=== PATIENT | female | born 1950 | race Caucasian/White ===

== ENCOUNTER → 2016-05-11 | Outpatient (REF) | payer MEDICARE, OTHER ==
[~2016-05-11] MED LIST: AMBI10TA PO; ASPI81TA45 OR; BIOT10005 PO; CEFT500T3 PO; CIPR500T3 PO; DRIS50002 PO; ESCI10TA2 PO; FISH100049 PO; FLOM5CAP PO; GLUC500T53 PO; HYDR-3719 PO; MULT1TAB8 PO; OYST500T OR; PERCOCET PO; VICO5TAB PO; VIT D 2000 PO; VITS; multivitamins PO; phentermine PO
== END ==
LOC: M SMT 12:59
PROVIDERS: ATTEND Urology
DX: N20.0 Calculus of kidney (principal)
CPT/HCPCS: 81001; 87086; G0463

== ENCOUNTER → 2016-05-23 | Outpatient (REF) | payer MEDICARE, OTHER ==
[2016-05-23 21:19] LABS: CALCIUM LEVEL 9.5 MG/DL (8.8-10.2); CARBON DIOXIDE LEVEL 31 MEQ/L (21-32); CHLORIDE LEVEL 105 MEQ/L (98-107); GLOMERULAR FILTRATION RATE > 60.0 (>45); MAGNESIUM LEVEL 2.2 MG/DL (1.8-2.4); PHOSPHORUS LEVEL 3.4 MG/DL (2.5-4.9); POTASSIUM SERUM 4.2 MEQ/L (3.5-5.1); SODIUM LEVEL 143 MEQ/L (136-145); URIC ACID 4.8 MG/DL (2.6-6.0)
== END ==
LOC: M LAB REF 08:51
PROVIDERS: ATTEND Urology
DX: N20.0 Calculus of kidney (principal)

== ENCOUNTER → 2016-07-19 | Outpatient (CLI) | payer MEDICARE, BC ==
--- NOTE | 2016-07-19 09:23 | REPMRS ---
Patient History The patient states she has not had a clinical breast exam in over a year. Patient is postmenopausal, has history of cancer in the right breast at age 51, had previous chest radiation therapy at age 51, and had previous chemotherapy at age 51. No known family history of cancer. Malignant excisional biopsy of the right breast, 2001. Radiation therapy of the right breast, 2001. Took tamoxifen for 5 years. Digital Woman Screen Mammo: July 19, 2016 - Exam #: [id number] Bilateral CC and MLO view(s) were taken. Technologist: Pinky Koroma, Technologist Prior study comparison: June 15, 2015, digital woman screen mammo performed at [facility] [place]. May 18, 2014, digital woman screen mammo performed at [facility]. FINDINGS: There are scattered fibroglandular densities. There is a fairly symmetric fibroglandular pattern in both breasts. There has been no interval development of masses, areas of architectural distortion or clusters of microcalcifications typical of malignancy. ASSESSMENT: BI-RADS/ACR category 2 mammogram. Benign finding(s). Recommendation Routine screening mammogram of both breasts in 1 year (for women over age 40). This mammogram was interpreted with the aid of an FDA-approved computer-aided dectection system. Electronically Signed By: Rodrick Gerenwood MD 07/19/16 0955
== END ==
LOC: M WHC 08:00
PROVIDERS: ATTEND Family Medicine
DX: Z12.31 Encounter for screening mammogram for malignant neoplasm of breast (principal); Z78.0 Asymptomatic menopausal state; Z85.3 Personal history of malignant neoplasm of breast; Z92.3 Personal history of irradiation; Z92.21 Personal history of antineoplastic chemotherapy

== ENCOUNTER → 2016-09-26 | Outpatient (CLI) | payer MEDICARE, BC, OTHER ==
--- NOTE | 2016-09-26 11:42 | REP ---
HIDA SCAN WITH GALLBLADDER EJECTION FRACTION: Following the intravenous administration of 6.1 mCi technetium 99m mebrofenin, multiple images of the right upper quadrant are performed every 5 minutes for a period of 1 hour. Gallbladder is visualized at 10 minutes postinjection. 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 At the 1-hour malou, 8 ounces of Ensure Enlive was ingested and further imaging performed for 1 hour. Lefkccy-hd-owzru transit is seen at about 5 minutes after ingestion of the Ensure. Gallbladder activity is measured, and the gallbladder ejection fraction is calculated to be 84%, which is normal. IMPRESSION: Normal gallbladder ejection fraction. 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 No scintigraphic evidence of cholecystitis. Signed by Rodrick Greenwood MD 09/28/2016 06:55 P
== END ==
LOC: M RAD 07:43
PROVIDERS: ATTEND Family Medicine
DX: R10.31 Right lower quadrant pain (principal)
CPT/HCPCS: 78227; A9537; J2805

== ENCOUNTER → 2016-11-30 | Outpatient (REF) | payer MEDICARE, OTHER ==
[~2016-11-30] MED LIST changes: -BIOT10005 PO; +BIOT10008 PO
== END ==
LOC: M LAB REF 15:40
PROVIDERS: ATTEND Nurse Practitioner Family
DX: L08.9 Local infection of the skin and subcutaneous tissue, unspecified (principal)

== ENCOUNTER → 2018-02-08 | Outpatient (CLI) | payer MEDICARE, OTHER ==
[2018-02-08 19:32] LABS: ANION GAP 8 MEQ/L (8-16); BLOOD UREA NITROGEN 17 MG/DL (7-18); CALCIUM LEVEL 9.3 MG/DL (8.8-10.2); CARBON DIOXIDE LEVEL 30 MEQ/L (21-32); CHLORIDE LEVEL 106 MEQ/L (98-107); CREATININE FOR GFR 0.85 MG/DL (0.55-1.30); GLOMERULAR FILTRATION RATE > 60.0 (>45); GLUCOSE, FASTING 189 MG/DL (70-100); PHOSPHORUS LEVEL 3.4 MG/DL (2.5-4.9); POTASSIUM SERUM 4.3 MEQ/L (3.5-5.1); SODIUM LEVEL 144 MEQ/L (136-145)
== END ==
LOC: M ADAMS 15:18
DX: I71.01 Dissection of thoracic aorta (principal)
CPT/HCPCS: 80069

== ENCOUNTER → 2018-02-15 | Outpatient (CLI) | payer MEDICARE, BC, OTHER ==
[~2018-02-15] MED LIST changes: -AMBI10TA PO; -ASPI81TA45 OR; -BIOT10008 PO; -CEFT500T3 PO; -CIPR500T3 PO; -DRIS50002 PO; -ESCI10TA2 PO; -FISH100049 PO; -FLOM5CAP PO; -GLUC500T53 PO; -HYDR-3719 PO; +ISOVUE-370 76% 100ML VIAL (Q9967) As Ordered; -MULT1TAB8 PO; -OYST500T OR; -PERCOCET PO; -VICO5TAB PO; -VIT D 2000 PO; -VITS; -multivitamins PO; -phentermine PO
== END ==
LOC: M RAD 13:16
DX: I71.01 Dissection of thoracic aorta (principal)
CPT/HCPCS: Q9967

== ENCOUNTER 2018-02-25 13:24 | Day surgery (SDC) | payer MEDICARE, BC, OTHER ==
[~2018-02-25 13:24] MED LIST changes: +AMPICILLIN SOD/SULBACTAM SOD 3 GM in D5W MINI-BAG PLUS 100 ML IV; -ISOVUE-370 76% 100ML VIAL (Q9967) As Ordered; +dexameTHASONE 4 MG/ML 1ML VIAL (J1100) IV
[2018-02-25 13:54] LABS: BEDSIDE GLUCOSE 112 MG/DL (80-115)
[2018-02-25] MEDS: LR 1,000 ML IV (13:56)
[2018-02-25] MEDS: LIDOCAINE VISCOUS 2% SOLN 15ML UDC As Ordered (16:34)
[2018-02-25] MEDS ORDERED: LIDOCAINE 2% INJ 100 MG/5 ML SDV (FOR ANES.) As Ordered (16:58)
[2018-02-25] MEDS ORDERED: PROPOFOL 200 MG/20 ML VIAL As Ordered ×2 (16:58)
[2018-02-25] MEDS ORDERED: fentaNYL 100 MCG/2 ML INJECTION (J3010) As Ordered (16:58)
[2018-02-25] MEDS ORDERED: ONDANSETRON 4MG/2ML VIAL (J2405) As Ordered (16:58)
[2018-02-25] MEDS ORDERED: MIDAZOLAM INJ 2 MG/2 ML VIAL (J2250) As Ordered (16:59)
[2018-02-25] MEDS: CETACAINE SPRAY 5GM As Ordered (17:17)
== END 2018-02-25 18:50 | disposition home or self-care (01) ==
LOC: M SDC 13:24
DX: I71.01 Dissection of thoracic aorta (principal); Q23.1 Congenital insufficiency of aortic valve; I34.1 Nonrheumatic mitral (valve) prolapse; I48.91 Unspecified atrial fibrillation; E78.00 Pure hypercholesterolemia, unspecified; E11.9 Type 2 diabetes mellitus without complications; K57.32 Diverticulitis of large intestine without perforation or abscess without bleeding; F32.9 Major depressive disorder, single episode, unspecified; G47.33 Obstructive sleep apnea (adult) (pediatric); Z79.899 Other long term (current) drug therapy; Z79.82 Long term (current) use of aspirin; Z85.3 Personal history of malignant neoplasm of breast; Z92.21 Personal history of antineoplastic chemotherapy; Z92.3 Personal history of irradiation; Z90.710 Acquired absence of both cervix and uterus; Z95.828 Presence of other vascular implants and grafts
CPT/HCPCS: 76376

== ENCOUNTER → 2018-09-13 | Outpatient (CLI) | payer MEDICARE, BC ==
[~2018-09-13] MED LIST changes: +AMBI10TA PO; -AMPICILLIN SOD/SULBACTAM SOD 3 GM in D5W MINI-BAG PLUS 100 ML IV; +APAP325T4 PO; +ASPI1CHW2 PO; +ASPI81TA45 OR; +BIOT10008 PO; +CEFT500T3 PO; +CIPR500T3 PO; +CRES20TA2 PO; +DRIS50003 PO; +DULO1CAP3 PO; +ESCI10TA2 PO; +FISH100049 PO; +FLOM0.4C39 PO; +GLUC500T53 PO; +HYDR-3719 PO; +INVO100T PO; +MULT1TAB8 PO; +OYST500T OR; +PERCOCET PO; +PREG100CA PO; +VASC1CAP2 PO; +VICO10TA11 PO; +VICO5TAB PO; +VIT D 2000 PO; +VITS; -dexameTHASONE 4 MG/ML 1ML VIAL (J1100) IV; +multivitamins PO; +phentermine PO
--- NOTE | 2018-09-13 13:59 | REPMRS ---
Patient History The patient states she had a clinical breast exam in 07/2018. No known family history of cancer. Malignant excisional biopsy of the right breast, 2001. Radiation therapy of the right breast, 2001. Took tamoxifen for 5 years. Digital Woman Screen Mammo: September 13, 2018 - Exam #: [id number] Bilateral CC and MLO view(s) were taken. Technologist: Pinky Koroma, Technologist Prior study comparison: July 19, 2016, digital woman screen mammo performed at [facility]. June 15, 2015, digital woman screen mammo performed at [facility]. May 18, 2014, digital woman screen mammo performed at [facility]. FINDINGS: There are scattered fibroglandular densities. There is a stable area of post-treatment scarring in the upper outer quadrant on the right. There has been no change in the appearance of the mammogram from the prior studies. There is a mild amount of scattered fibroglandular density which is fairly symmetric. There is no interval development of dominant mass, architectural distortion, or clustered microcalcification suggestive of malignancy. 3-D tomosynthesis shows no additional findings. Assessment: BI-RADS/ACR category 2 mammogram. Benign Findings. Recommendation Routine screening mammogram of both breasts in 1 year (for women over age 40). This mammogram was interpreted with the aid of an FDA-approved computer-aided dectection system. Electronically Signed By: Sal Connors MD 09/13/18 1089
== END ==
LOC: M WHC 07:56
PROVIDERS: ATTEND Obstetrics & Gynecology
DX: Z12.31 Encounter for screening mammogram for malignant neoplasm of breast (principal); Z85.3 Personal history of malignant neoplasm of breast; Z79.810 Long term (current) use of selective estrogen receptor modulators (SERMs)

== ENCOUNTER → 2019-11-10 | Outpatient (CLI) | payer MEDICARE, BC ==
[~2019-11-10] MED LIST changes: -DULO1CAP3 PO; +DULO1CAP6 PO
--- NOTE | 2019-11-10 16:01 | REPMRS ---
Patient History The patient states she had a clinical breast exam in September 2019. No known family history of cancer. Malignant excisional biopsy of the right breast, 2001. Radiation therapy of the right breast, 2001. Took tamoxifen for 5 years. 3D TOMOSYNTHESIS WAS PERFORMED. PAULINA Champagne. Digital Woman Screen Mammo: November 10, 2019 - Exam #: [id number] Bilateral CC and MLO view(s) were taken. Technologist: Jody Haro, Technologist Prior study comparison: September 13, 2018, bilateral digital woman screen mammo performed at [facility]. July 19, 2016, digital woman screen mammo performed at [facility]. FINDINGS: There are scattered fibroglandular densities. There is a fairly symmetric fibroglandular pattern in both breasts. There has been no interval development of masses, areas of architectural distortion or clusters of microcalcifications typical of malignancy. There are stable post surgical changes in the right upper outer quadrant. No significant changes when compared with prior studies. Assessment: BI-RADS/ACR category 2 mammogram. Benign Findings. Recommendation Routine screening mammogram of both breasts in 1 year (for women over age 40). This mammogram was interpreted with the aid of an FDA-approved computer-aided dectection system. Electronically Signed By: Rodrick Greenwood MD 11/10/19 1600
== END ==
LOC: M WHC 14:25
PROVIDERS: ATTEND Obstetrics & Gynecology
DX: Z12.31 Encounter for screening mammogram for malignant neoplasm of breast (principal); Z85.3 Personal history of malignant neoplasm of breast; Z92.3 Personal history of irradiation

== ENCOUNTER → 2020-02-17 | Outpatient (CLI) | payer MEDICARE, BC, OTHER ==
[~2020-02-17] MED LIST changes: +GASTROGRAFIN SOLUTION 30ML (Q9963) As Ordered ONE; +ISOVUE-370 76% 100ML VIAL As Ordered ONE
--- NOTE | 2020-02-17 11:43 | REP ---
INDICATION: RLQ PAIN. COMPARISON: 01/28/2016, 12/31/2009. TECHNIQUE: 100 cc Isovue 370. FINDINGS: The lung bases are clear and unchanged. The liver, gallbladder, spleen, pancreas, and adrenal glands are within normal limits and essentially unchanged. There is a left renal calculus status quo. The abdominal aorta and para-aortic regions are within normal limits. There is no free fluid or free air. The bowel loops and the mesenteries are within normal limits. There is no abnormal pericecal fatty infiltration or fluid. There is no intra-abdominal mass or adenopathy. Bone window technique throughout the examination shows no significant change. There is spinal degenerative changes status quo. IMPRESSION: There is no evidence of acute intra-abdominal or intrapelvic disease. There has been no significant change compared to the prior exams. <Electronically signed by Dalton Johnson > 02/17/20 [id number]
== END ==
LOC: M RAD 08:50
PROVIDERS: ATTEND Family Medicine
DX: R10.9 Unspecified abdominal pain (principal)
CPT/HCPCS: 74177; Q9963; Q9967

== ENCOUNTER → 2020-12-06 | Outpatient (CLI) | payer MEDICARE, BC ==
[~2020-12-06] MED LIST changes: +ATOR40TA75 PO; +ESCI10TA16 PO; -ESCI10TA2 PO; +GABA600T4 PO; -GASTROGRAFIN SOLUTION 30ML (Q9963) As Ordered ONE; -ISOVUE-370 76% 100ML VIAL As Ordered ONE; +JARD1TAB PO; +LOSA50TA28 PO; +NAPR220C14 PO
== END ==
LOC: M WHC 08:27
PROVIDERS: ATTEND Obstetrics & Gynecology
DX: Z12.31 Encounter for screening mammogram for malignant neoplasm of breast (principal); Z85.3 Personal history of malignant neoplasm of breast; Z92.3 Personal history of irradiation

== ENCOUNTER 2020-12-21 17:09 | Emergency (ER) | payer MEDICARE, BC, OTHER ==
[~2020-12-21] VITALS: Ht 162.6 cm; Wt 93.4 kg
[~2020-12-21 17:09] MED LIST changes: -ATOR40TA75 PO; -GABA600T4 PO; -JARD1TAB PO; -LOSA50TA88 PO; -NAPR220C14 PO
[2020-12-21] MEDS ORDERED: LOSA50TA88 PO (17:58)
[2020-12-21] MEDS ORDERED: NAPR220C14 PO (17:58)
[2020-12-21] MEDS ORDERED: GABA600T4 PO (17:58)
[2020-12-21] MEDS ORDERED: JARD1TAB PO (17:58)
[2020-12-21] MEDS ORDERED: ATOR40TA75 PO (17:58)
[2020-12-21 20:13] VITALS: BP 122/78
== END 2020-12-21 20:17 | disposition home or self-care (01) ==
LOC: M ED 17:09
DX: S62.617A Displaced fracture of proximal phalanx of left little finger, initial encounter for closed fracture (principal); W01.0XXA Fall on same level from slipping, tripping and stumbling without subsequent striking against object, initial encounter; Y92.018 Other place in single-family (private) house as the place of occurrence of the external cause; R73.03 Prediabetes; Z78.0 Asymptomatic menopausal state; Z79.899 Other long term (current) drug therapy; Z79.82 Long term (current) use of aspirin

== ENCOUNTER → 2020-12-21 | Outpatient (CLI) | payer MEDICARE, BC, OTHER ==
[~2020-12-21] MED LIST changes: -LOSA50TA28 PO; +LOSA50TA88 PO
--- NOTE | 2020-12-21 16:54 | REP ---
INDICATION: SP TRAUMA R/O FX L 5TH DIGIT. COMPARISON: None. TECHNIQUE: Four views FINDINGS: There is a transverse fracture of the proximal diaphysis of the proximal phalanx of the 5th digit with lateral angulation. IMPRESSION: Fracture as described above. <Electronically signed by Dalton Johnson > 12/21/20 [id number]
== END ==
LOC: M RAD 16:27
PROVIDERS: ATTEND Physician Assistant Medical
DX: S62.617A Displaced fracture of proximal phalanx of left little finger, initial encounter for closed fracture (principal); X58.XXXA Exposure to other specified factors, initial encounter; Y92.9 Unspecified place or not applicable; Y99.9 Unspecified external cause status

== ENCOUNTER → 2021-02-08 | Outpatient (REF) | payer MEDICARE, BC, OTHER ==
[~2021-02-08] MED LIST changes: +ATOR40TA75 PO; +GABA600T4 PO; +JARD1TAB PO; +LOSA50TA88 PO; +NAPR220C14 PO
[2021-02-08 12:53] LABS: HEMATOCRIT 42.1 % (36.0-47.0); HEMOGLOBIN 13.6 g/dl (12.0-15.5); MEAN CORPUSCULAR HEMOGLOBIN 31.1 pg (27.0-33.0); MEAN CORPUSCULAR HGB CONC 32.3 g/dl (32.0-36.5); MEAN CORPUSCULAR VOLUME 96.3 fl (80.0-96.0); PLATELET COUNT, AUTOMATED 251 10^3/uL (150-450); RED BLOOD COUNT 4.37 10^6/uL (4.00-5.40); WHITE BLOOD COUNT 6.2 10^3/uL (4.0-10.0)
[2021-02-08 14:02] LABS: BLOOD UREA NITROGEN 15 MG/DL (7-18); CARBON DIOXIDE LEVEL 28 MEQ/L (21-32); CHLORIDE LEVEL 104 MEQ/L (98-107); CREATININE FOR GFR 0.82 MG/DL (0.55-1.30); GLOMERULAR FILTRATION RATE > 60.0 (>45); GLUCOSE, FASTING 177 MG/DL (70-100); POTASSIUM SERUM 4.4 MEQ/L (3.5-5.1); SODIUM LEVEL 139 MEQ/L (136-145)
== END ==
LOC: M LABDRWAD 12:29
PROVIDERS: ATTEND Specialist
DX: Z01.812 Encounter for preprocedural laboratory examination (principal); Z79.899 Other long term (current) drug therapy

== ENCOUNTER → 2021-04-14 | Outpatient (CLI) | payer MEDICARE, BC, OTHER ==
[~2021-04-14] MED LIST changes: +LOSA50TA28 PO; -LOSA50TA88 PO
== END ==
LOC: M PLAIMG 13:58
PROVIDERS: ATTEND Family Medicine
DX: R10.31 Right lower quadrant pain (principal); M54.6 Pain in thoracic spine; M51.34 Other intervertebral disc degeneration, thoracic region; M51.24 Other intervertebral disc displacement, thoracic region; M48.04 Spinal stenosis, thoracic region

== ENCOUNTER → 2021-08-04 | Outpatient (REF) | payer MEDICARE, OTHER ==
[2021-08-04 13:37] LABS: HEMATOCRIT 41.4 % (36.0-47.0); HEMOGLOBIN 13.8 g/dl (12.0-15.5); MEAN CORPUSCULAR HEMOGLOBIN 31.6 pg (27.0-33.0); MEAN CORPUSCULAR HGB CONC 33.3 g/dl (32.0-36.5); MEAN CORPUSCULAR VOLUME 94.7 fl (80.0-96.0); PLATELET COUNT, AUTOMATED 241 10^3/uL (150-450); RED BLOOD COUNT 4.37 10^6/uL (4.00-5.40); WHITE BLOOD COUNT 6.3 10^3/uL (4.0-10.0)
[2021-08-04 14:02] LABS: BLOOD UREA NITROGEN 12 MG/DL (7-18); CALCIUM LEVEL 9.5 MG/DL (8.8-10.2); CARBON DIOXIDE LEVEL 28 MEQ/L (21-32); CHLORIDE LEVEL 105 MEQ/L (98-107); GLOMERULAR FILTRATION RATE > 60.0 (>39); GLUCOSE, FASTING 167 MG/DL (70-100); POTASSIUM SERUM 4.5 MEQ/L (3.5-5.1); SODIUM LEVEL 140 MEQ/L (136-145)
== END ==
LOC: M LABDRWAD 12:25
PROVIDERS: ATTEND Specialist
DX: Z01.812 Encounter for preprocedural laboratory examination (principal); Z79.899 Other long term (current) drug therapy

== ENCOUNTER → 2021-08-08 | Outpatient (CLI) | payer MEDICARE, OTHER ==
[2021-08-08 16:43] LABS: HEMOGLOBIN A1c 8.1 %
== END ==
LOC: M WUC 14:07
PROVIDERS: ATTEND Specialist
DX: Z01.812 Encounter for preprocedural laboratory examination (principal); Z79.899 Other long term (current) drug therapy; Z79.82 Long term (current) use of aspirin

== ENCOUNTER → 2021-11-04 | Outpatient (CLI) | payer MEDICARE, OTHER ==
[2021-11-04 16:59] LABS: HEMOGLOBIN A1c 7.2 %
== END ==
LOC: M ADAMS 13:28
PROVIDERS: ATTEND Physician Assistant
DX: E11.9 Type 2 diabetes mellitus without complications (principal)

== ENCOUNTER → 2021-12-12 | Outpatient (CLI) | payer MEDICARE, OTHER ==
[2021-12-12 14:05] LABS: ALBUMIN 3.5 GM/DL (3.2-5.2); ALT/SGPT 22 U/L (12-78); BILIRUBIN,TOTAL 0.4 MG/DL (0.2-1.0); BLOOD UREA NITROGEN 19 MG/DL (7-18); CALCIUM LEVEL 9.2 MG/DL (8.8-10.2); CARBON DIOXIDE LEVEL 28 MEQ/L (21-32); CHLORIDE LEVEL 102 MEQ/L (98-107); CREATININE FOR GFR 0.76 MG/DL (0.55-1.30); GLOMERULAR FILTRATION RATE > 60.0 (>39); GLUCOSE, FASTING 92 MG/DL (70-100); SODIUM LEVEL 137 MEQ/L (136-145); TOTAL PROTEIN 7.3 GM/DL (6.4-8.2)
[2021-12-12 15:47] LABS: HEMOGLOBIN A1c 6.4 %
== END ==
LOC: M ADAMS 08:34
PROVIDERS: ATTEND Physician Assistant
DX: E11.9 Type 2 diabetes mellitus without complications (principal)

== ENCOUNTER → 2022-01-17 | Outpatient (REF) | payer MEDICARE, OTHER ==
[2022-01-17 14:00] LABS: HEMATOCRIT 41.9 % (36.0-47.0); HEMOGLOBIN 13.5 g/dl (12.0-15.5); MEAN CORPUSCULAR HEMOGLOBIN 30.6 pg (27.0-33.0); MEAN CORPUSCULAR HGB CONC 32.2 g/dl (32.0-36.5); PLATELET COUNT, AUTOMATED 264 10^3/uL (150-450); RED BLOOD COUNT 4.41 10^6/uL (4.00-5.40); WHITE BLOOD COUNT 9.1 10^3/uL (4.0-10.0)
[2022-01-17 14:13] LABS: BLOOD UREA NITROGEN 13 MG/DL (7-18); CALCIUM LEVEL 9.5 MG/DL (8.8-10.2); CARBON DIOXIDE LEVEL 28 MEQ/L (21-32); CHLORIDE LEVEL 104 MEQ/L (98-107); CREATININE FOR GFR 0.94 MG/DL (0.55-1.30); GLOMERULAR FILTRATION RATE > 60.0 (>39); GLUCOSE, FASTING 122 MG/DL (70-100); POTASSIUM SERUM 4.3 MEQ/L (3.5-5.1); SODIUM LEVEL 138 MEQ/L (136-145)
== END ==
LOC: M LABDRWAD 13:17
PROVIDERS: ATTEND Specialist
DX: Z01.812 Encounter for preprocedural laboratory examination (principal); Z79.899 Other long term (current) drug therapy

== ENCOUNTER → 2022-02-13 | Outpatient (CLI) | payer MEDICARE, BC, OTHER | LOC: M WHC 08:54 | PROVIDERS: ATTEND Family Medicine | DX: Z12.31 Encounter for screening mammogram for malignant neoplasm of breast (principal); Z85.3 Personal history of malignant neoplasm of breast ==

== ENCOUNTER → 2022-09-19 | Outpatient (CLI) | payer MEDICARE, BC, OTHER | LOC: M WHC 08:58 | PROVIDERS: ATTEND Family Medicine | DX: Z78.0 Asymptomatic menopausal state (principal) ==

== ENCOUNTER → 2022-09-19 | Outpatient (REF) | payer MEDICARE, BC, OTHER ==
[2022-09-19 14:21] LABS: BASO % 0.3 % (0.0-1.0); EOS # 0.1 10^3/uL (0.0-0.5); EOS % 1.7 % (0.0-3.0); HEMATOCRIT 37.7 % (36.0-47.0); LYMPH # 1.5 10^3/uL (1.5-5.0); LYMPH % 24.3 % (24.0-44.0); MEAN CORPUSCULAR HEMOGLOBIN 30.3 pg (27.0-33.0); MEAN CORPUSCULAR HGB CONC 31.8 g/dl (32.0-36.5); MEAN CORPUSCULAR VOLUME 95.2 fl (80.0-96.0); MONO # 0.6 10^3/uL (0.0-0.8); MONO % 10.2 % (2.0-8.0); NEUTROPHILS # 3.8 10^3/uL (1.5-8.5); NEUTROPHILS % 63.3 % (36.0-66.0); PLATELET COUNT, AUTOMATED 272 10^3/uL (150-450); RED BLOOD COUNT 3.96 10^6/uL (4.00-5.40)
== END ==
LOC: M LABDRWAD 13:14
PROVIDERS: ATTEND Family Medicine
DX: D72.829 Elevated white blood cell count, unspecified (principal)

== ENCOUNTER → 2023-08-10 | Outpatient (CLI) | payer MEDICARE, BC, OTHER | LOC: M WUC 09:57 | PROVIDERS: ATTEND Nurse Practitioner Family | DX: M16.11 Unilateral primary osteoarthritis, right hip (principal) ==

== ENCOUNTER 2023-08-29 00:11 | Emergency (ER) | payer MEDICARE, BC, OTHER ==
[~2023-08-29] VITALS: Ht 162.6 cm; Wt 89.6 kg
[2023-08-29] MEDS: MORPHINE 4 MG/ML 1ML VIAL IV PRN (00:59)
[2023-08-29] MEDS: ONDANSETRON 4MG 2ML VIAL IV ONE (00:59)
[2023-08-29 01:10] LABS: BASO % 0.1 % (0.0-1.0); EOS # 0.1 10^3/uL (0.0-0.5); EOS % 1.2 % (0.0-3.0); HEMATOCRIT 40.6 % (36.0-47.0); HEMOGLOBIN 13.5 g/dl (12.0-15.5); LYMPH # 1.2 10^3/uL (1.5-5.0); LYMPH % 13.2 % (24.0-44.0); MEAN CORPUSCULAR HEMOGLOBIN 29.9 pg (27.0-33.0); MEAN CORPUSCULAR HGB CONC 33.3 g/dl (32.0-36.5); MEAN CORPUSCULAR VOLUME 89.8 fl (80.0-96.0); MONO # 0.7 10^3/uL (0.0-0.8); MONO % 7.4 % (2.0-8.0); NEUTROPHILS # 7.1 10^3/uL (1.5-8.5); NEUTROPHILS % 77.8 % (36.0-66.0); PLATELET COUNT, AUTOMATED 303 10^3/uL (150-450); RED BLOOD COUNT 4.52 10^6/uL (4.00-5.40); WHITE BLOOD COUNT 9.1 10^3/uL (4.0-10.0)
[2023-08-29 01:21] LABS: ALKALINE PHOSPHATASE 79 U/L (46-116); ALT/SGPT 27 U/L (7.0-40); AST/SGOT 83 U/L (<34); BILIRUBIN,DIRECT 0.1 MG/DL (<0.4); BILIRUBIN,TOTAL 0.5 MG/DL (0.3-1.2); BLOOD UREA NITROGEN 20 MG/DL (9-23); CALCIUM LEVEL 9.4 MG/DL (8.3-10.6); CARBON DIOXIDE LEVEL 29 MMOL/L (20-31); CHLORIDE LEVEL 102 MMOL/L (98-107); CREATININE FOR GFR 0.65 MG/DL (0.55-1.30); GLOMERULAR FILTRATION RATE > 60.0 (>39); GLUCOSE, FASTING 183 MG/DL (74-106); LIPASE 45 U/L (12-53); POTASSIUM SERUM 5.6 MMOL/L (3.5-5.1); SODIUM LEVEL 138 MMOL/L (136-145); TOTAL PROTEIN 7.6 G/DL (5.7-8.2)
[2023-08-29] MEDS ORDERED: KETOROLAC 30 MG/ML 1ML VIAL As Ordered ONE (01:22)
[2023-08-29] MEDS: KETOROLAC 30 MG/ML 1ML VIAL IV ONE (01:25)
[2023-08-29] MEDS ORDERED: ISOVUE-370 76% 100ML VIAL As Ordered ONE (02:51)
[2023-08-29] MEDS: HYDROMORPHONE HCL 0.5 MG/ 0.5 ML SYRINGE IV PRN (02:55)
[2023-08-29 02:58] LABS: CK-MB VALUE MASS 1.7 NG/ML (<3.6); CPK CREATINE PHOSPHOKINASE 147 U/L (34-145); MB/CK RELATIVE INDEX 1.15 (< OR =4)
[2023-08-29] MEDS: MAGNESIUM CITRATE 300ML BTL PO ONE (05:20)
[2023-08-29 05:30] VITALS: BP 117/62; TEMP 97.2; O2SAT 97
== END 2023-08-29 06:03 | disposition home or self-care (01) ==
LOC: M ED 00:11
DX: K59.00 Constipation, unspecified (principal); K57.30 Diverticulosis of large intestine without perforation or abscess without bleeding; E11.9 Type 2 diabetes mellitus without complications; I10 Essential (primary) hypertension; Z87.442 Personal history of urinary calculi; Z85.3 Personal history of malignant neoplasm of breast; Z79.82 Long term (current) use of aspirin; Z79.84 Long term (current) use of oral hypoglycemic drugs; Z79.899 Other long term (current) drug therapy
CPT/HCPCS: 74177; 80047; 80048; 80076; 81000; 81015; 82550; 82553; 83605; 83690; 84484; 85025; 87088; 87186; 93005; 96374; 96375; 96376; 99284; J1170; J1885; J2405; Q9967

== ENCOUNTER → 2023-08-30 | Outpatient (CLI) | payer MEDICARE, BC | LOC: M WHC 12:58 | PROVIDERS: ATTEND Nurse Practitioner Family | DX: Z12.31 Encounter for screening mammogram for malignant neoplasm of breast (principal) ==

== ENCOUNTER → 2024-03-14 | Outpatient (CLI) | payer MEDICARE, BC ==
[~2024-03-14] MED LIST changes: +GABA-1490 PO; -GABA600T4 PO
== END ==
LOC: M PLAIMG 07:37
PROVIDERS: ATTEND Physician Assistant
DX: I71.20 Thoracic aortic aneurysm, without rupture, unspecified (principal); Q23.1 Congenital insufficiency of aortic valve; I34.0 Nonrheumatic mitral (valve) insufficiency

== ENCOUNTER → 2024-09-01 | Outpatient (CLI) | payer MEDICARE, BC ==
[~2024-09-01] MED LIST changes: -AMBI10TA PO; -FLOM0.4C39 PO; +PREG-35 PO; -PREG100CA PO; +TAMS-18 PO; +ZOLP-533 PO
== END ==
LOC: M LAB 12:53
PROVIDERS: ATTEND Physician Assistant
DX: I48.0 Paroxysmal atrial fibrillation (principal); I49.1 Atrial premature depolarization; Z53.9 Procedure and treatment not carried out, unspecified reason

== ENCOUNTER → 2024-09-08 | Outpatient (CLI) | payer MEDICARE, BC | LOC: M WHC 07:35 | PROVIDERS: ATTEND Nurse Practitioner Family | DX: Z12.31 Encounter for screening mammogram for malignant neoplasm of breast (principal); R92.313 Mammographic fatty tissue density, bilateral breasts ==